=== PATIENT | female | born 1975 | race Caucasian/White ===

== ENCOUNTER 2017-03-05 08:29 | Emergency (ER) | payer OTHER ==
--- NOTE | 2017-03-05 09:27 | ED ORDER SUMMARY ---
..... Patient: OJ SOMERS OrderSheet [facility] VisitID: [id number] [address] [place] [address] 41y, F Registration Date/Time: 03/05/2017 ORDER SHEET Weight: 86.1 kg (stated) Allergies: Zithromax, Tramadol GENERAL ORDERS: MEDICATION ORDERS: Toradol IM 60 mg (NOW) (09:19 03/05/2017 Felisha Nowak) (9:27 Caesar Carreon.NLuciano) IV FLUIDS: ORDER SHEET NOTES: [Electronically signed by Denny Ackerman Dr. (09:41 03/05/2017)] [Electronically signed by Yeni Garcia R.N. (16:40 03/05/2017)] [Electronically locked/signed by Yeni Garcia R.N. (16:40 03/05/2017)]
--- NOTE | 2017-03-05 09:27 | ED CLINICAL REPORT ---
Clinical Report - Physicians/Mid Levels [facility] [address] [place] [address] 03/05/2017 8:30 Patient: OJ SOMERS Time Seen: 08:52; initial patient contact. Arrived- By private vehicle. Historian- patient. HISTORY OF PRESENT ILLNESS Chief Complaint: HEADACHE. Is still present. This started about 1 month ago. It was gradual in onset. Onset during light activity. It is described as "pain". Quality described as unlike previous headaches. Located in the region of the left eye and occipital region. No neck pain. At its maximum, severity described as moderate. When seen in the E.D., severity described as moderate. The patient has had blurred vision and nausea. No preceding symptoms, photophobia, numbness, weakness or vomiting. Similar symptoms previously: None. Recent medical care: The patient was seen recently by a health care provider (Seen by optometry, Treated w/ steroids and eye drops w/out resolution). REVIEW OF SYSTEMS No fever, muscle aches or sinus pressure. All systems otherwise negative, except as recorded above. PAST HISTORY Intervertebral Disc Disease. Back Injury. Back Pain. Tendonitis RFA, Steroid inj.. SURGERIES: Cystocele, prolapsed uterus. Elbow. Foot surgery . Knee Surgery. SOCIAL HISTORY Never smoker. Occasional alcohol use. No drug use. ADDITIONAL NOTES The nursing notes have been reviewed. PHYSICAL EXAM Vital Signs: 03/05/2017 08:44 BP: 137/90. HR: 68. RR: 18. O2 saturation: 100%. Temp: 98.5 F. Have been reviewed. Hypertensive. Heart rate normal. Respiratory rate normal. Temperature normal. Oxygen saturation normal. Appearance: Alert. No acute distress. Eyes: Pupils equal, round and reactive to light and light. Moderate, diffuse redness of the left conjunctiva. No exudate on the left. EOMs intact. No photophobia. ENT: Pharynx normal. Neck: Moderate muscle spasm of the left posterior neck. Moderate soft tissue tenderness in the left upper, mid and lower neck area. No lymphadenopathy. No pain with movement of head/neck. No vertebral tenderness. No vertebral step-off. Skin: No rash. Neuro: Oriented X 3. Alert. PROGRESS AND PROCEDURES Discussed case with health care provider (call returned 09:27 Dr. uMñoz will see pt today, she agrees this may be glaucoma). Disposition: Discharged home in good condition. Condition: good. CLINICAL IMPRESSION Chronic tension-type headache resistant to treatment and poorly controlled. Acute eye pain left eye. INSTRUCTIONS Your Current Medications: STOP TAKING THE FOLLOWING MEDICATIONS: Methocarbamol Oral. CONTINUE TAKING THE FOLLOWING MEDICATIONS: Ibuprofen Oral. Naproxen Oral. Tylenol 8 Hour Oral. Prescription Medications: Baclofen 20 mg: take 1 orally every 8 hours. Dispense thirty (30). No refills. Follow-up: Screening today revealed the patient's blood pressure to be in the hypertensive range. The patient should follow up with a primary care provider for blood pressure management. Follow-up with: Laure Muñoz MD, Ophthalmology, [facility], [address] [place] [address] - [address], [place] [address] Follow up today. Follow-up with: [facility] Medicine, Family [facility], , [address] [place] [address], [address], [place] [address] Follow up in about three days. Call for an appointment. (Electronically signed by Denny Ackerman Dr. 03/05/2017 9:41)
--- NOTE | 2017-03-05 09:27 | ED CLINICAL REPORT ---
Clinical Report - Physicians/Mid Levels [facility] [address] [place] [address] 03/05/2017 8:30 Patient: OJ SOMERS Time Seen: 08:52; initial patient contact. Arrived- By private vehicle. Historian- patient. HISTORY OF PRESENT ILLNESS Chief Complaint: HEADACHE. Is still present. This started about 1 month ago. It was gradual in onset. Onset during light activity. It is described as "pain". Quality described as unlike previous headaches. Located in the region of the left eye and occipital region. No neck pain. At its maximum, severity described as moderate. When seen in the E.D., severity described as moderate. The patient has had blurred vision and nausea. No preceding symptoms, photophobia, numbness, weakness or vomiting. Similar symptoms previously: None. Recent medical care: The patient was seen recently by a health care provider (Seen by optometry, Treated w/ steroids and eye drops w/out resolution). REVIEW OF SYSTEMS No fever, muscle aches or sinus pressure. All systems otherwise negative, except as recorded above. PAST HISTORY Intervertebral Disc Disease. Back Injury. Back Pain. Tendonitis RFA, Steroid inj.. SURGERIES: Cystocele, prolapsed uterus. Elbow. Foot surgery . Knee Surgery. SOCIAL HISTORY Never smoker. Occasional alcohol use. No drug use. ADDITIONAL NOTES The nursing notes have been reviewed. PHYSICAL EXAM Vital Signs: 03/05/2017 08:44 BP: 137/90. HR: 68. RR: 18. O2 saturation: 100%. Temp: 98.5 F. Have been reviewed. Hypertensive. Heart rate normal. Respiratory rate normal. Temperature normal. Oxygen saturation normal. Appearance: Alert. No acute distress. Eyes: Pupils equal, round and reactive to light and light. Moderate, diffuse redness of the left conjunctiva. No exudate on the left. EOMs intact. No photophobia. ENT: Pharynx normal. Neck: Moderate muscle spasm of the left posterior neck. Moderate soft tissue tenderness in the left upper, mid and lower neck area. No lymphadenopathy. No pain with movement of head/neck. No vertebral tenderness. No vertebral step-off. Skin: No rash. Neuro: Oriented X 3. Alert. PROGRESS AND PROCEDURES Discussed case with health care provider (call returned 09:27 Dr. Muñoz will see pt today, she agrees this may be glaucoma). Disposition: Discharged home in good condition. Condition: good. CLINICAL IMPRESSION Chronic tension-type headache resistant to treatment and poorly controlled. Acute eye pain left eye. INSTRUCTIONS Your Current Medications: STOP TAKING THE FOLLOWING MEDICATIONS: Methocarbamol Oral. CONTINUE TAKING THE FOLLOWING MEDICATIONS: Ibuprofen Oral. Naproxen Oral. Tylenol 8 Hour Oral. Prescription Medications: Baclofen 20 mg: take 1 orally every 8 hours. Dispense thirty (30). No refills. Follow-up: Screening today revealed the patient's blood pressure to be in the hypertensive range. The patient should follow up with a primary care provider for blood pressure management. Follow-up with: Laure Muñoz MD, Ophthalmology, [facility], [address] [place] [address] - [address], [place] [address] Follow up today. Follow-up with: [facility] Medicine, Family [facility], , [address] [place] [address], [address], [place] [address] Follow up in about three days. Call for an appointment. (Electronically signed by Denny Ackerman Dr. 03/05/2017 9:41)
--- NOTE | 2017-03-05 09:27 | ED NURSING NOTES ---
Clinical Report - Nurses [facility] [address] [place] [address] 03/05/2017 8:30 [id number] Triage time 08:44 Mar 05 2017. Acuity: LEVEL 3. Chief Complaint: HEADACHE. YANIV COMA SCORE: [place] Coma Scale: 15- eyes open spontaneously (4); best verbal response- oriented x 4 (5); best motor response- obeys commands (6). --08:52 Yeni Garcia R.N. 08:44 03/05/17. BP: 137/90. HR: 68. RR: 18. O2 saturation: 100%. Temp: 98.5 F. Pain level now 7/10. --08:52 Yeni Garcia R.N. Weight: 86.1 kg stated. Height/Length: 67 inches Per Patient. BMI: 29.8. --08:50 Yeni Garcia R.N. Medications Ibuprofen Oral. --08:47 Yeni Garcia R.N. Naproxen Oral. --08:47 Yeni Garcia R.N. Tylenol 8 Hour Oral. --08:47 Yeni Garcia R.N. Methocarbamol Oral. --08:48 Yeni Garcia R.N. Allergies Zithromax. --08:48 Yeni Garcia R.N. Tramadol. --08:48 Yeni Garcia R.N. History Arrived by private vehicle. Historian: patient. Accompanied by family. This started 3 months of headaches red eye for 1 month. ( States has severe headaches and then they will go away but now has this pressure in the mid left side back pain with tingling going down left arm at times.). She has had nausea, weakness and numbness. No vomiting, fever or sinus pain. 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 (naproxen methocarbol). PAST MEDICAL HX: Headaches. No history of diabetes mellitus or hypertension. No history of head injury. Immunizations: status is unknown. Last normal menstrual period- yesterday. SOCIAL HX: Never smoker. Occasional alcohol use. No drug use. SELF HARM ASSESSMENT: A self harm assessment was performed. The patient answered "no" to the question "Have you recently felt down, depressed, or hopeless?" and "Do you have thoughts of harming or killing yourself?". FALL RISK ASSESSMENT: Fall risk assessment completed. No fall risk identified. NUTRITIONAL RISK ASSESSMENT: The nutritional risk assessment revealed no deficiencies. FUNCTIONAL ASSESSMENT: Functional assessment: no impairments noted. LEARNING NEEDS ASSESSMENT: The learning needs assessment revealed no barriers. ABUSE ASSESSMENT: Abuse assessment: (yes) The patient was asked "Do you feel safe in your home?". SKIN INTEGRITY ASSESSMENT: Skin integrity risk assessment completed. No skin integrity risk identified. --08:52 Yeni Garcia R.N. PROBLEMS: Intervertebral Disc Disease. Back Injury. Back Pain. Tendonitis RFA, Steroid inj.. Tetanus Status. Immunizations. --08:48 Yeni Garcia R.N. ADDITIONAL SURGERIES: Cystocele, prolapsed uterus. Elbow. Foot surgery . Knee Surgery. --08:48 Yeni Garcia R.N. Interventions ID and allergy band on patient. --08:52 Yeni Garcia R.N. PHYSICAL ASSESSMENT Ambulatory to room. GENERAL / NEURO / PSYCH: Alert. Oriented X 4. Appears in pain and anxious. Speech within normal limits. HEENT: No facial asymmetry noted. Pupils equal, round and reactive to light. RESPIRATORY: Respirations not labored. Breath sounds within normal limits. CVS: Capillary refill less than 2 seconds. GI / : Abdomen soft and nontender. SKIN: Skin is warm and dry. --08:52 Yeni Garcia R.N. NURSING PROGRESS NOTES The initial plan of care for this patient includes an assessment with efforts to address patient positioning, appropriate ambient lighting and comfortable environmental temperature; impairment of the musculoskeletal system. Oxygen administered. Pulse oximeter and NIBP monitor placed on patient. Patient gowned. Reassurance given. Lights dimmed. Call light placed in reach. Side rails up x 1. Bed placed in lowest position. Brakes of bed on. --08:53 Yeni Garcia R.N. 09:27 03/05/2017 Toradol (Ketorolac Tromethamine) IM 60 mg given. Given in the right gluteus roby. Allergies verified and confirmed 5 rights. --09:27 Yeni Garcia R.N. DISPOSITION / DISCHARGE Departure time: 09:35 Mar 05 2017. Condition at departure: improved. No learning barriers present. Discharge instructions provided and reviewed with the patient. Reviewed warnings. Reviewed medication(s). Treatments reviewed. Reviewed referrals. Follow up contact number. Patient verbalized understanding. Written instructions provided in Guamanian. The patient was discharged home. She left the Emergency Department ambulatory and via private vehicle. Patient driving. --09:37 Yeni Garcia R.N. 08:44 03/05/17. BP: 137/90. HR: 68. RR: 18. O2 saturation: 100%. Temp: 98.5 F. Pain level now 7/10. --09:37 Yeni Garcia R.N. Locked/Released at 03/05/2017 16:40 by Yeni Garcia R.N.
--- NOTE | 2017-03-05 09:27 | ED ORDER SUMMARY ---
..... Patient: OJ SOMERS OrderSheet [facility] VisitID: [id number] [address] [place] [address] 41y, F Registration Date/Time: 03/05/2017 ORDER SHEET Weight: 86.1 kg (stated) Allergies: Zithromax, Tramadol GENERAL ORDERS: MEDICATION ORDERS: Toradol IM 60 mg (NOW) (09:19 03/05/2017 Felisha Nowak) (9:27 Caesar Carreon.NLuciano) IV FLUIDS: ORDER SHEET NOTES: [Electronically signed by Denny Ackerman Dr. (09:41 03/05/2017)] [Electronically signed by Yeni Garcia R.N. (16:40 03/05/2017)] [Electronically locked/signed by Yeni Garcia R.N. (16:40 03/05/2017)]
--- NOTE | 2017-03-05 16:41 | ED DISCHARGE INSTRUCTIONS ---
Patient: OJ SOMERS General Instructions [facility] VisitID: [id number] [address] [place] [address] 41y, F Registration Date/Time: 03/05/2017 Chronic tension-type headache resistant to treatment and poorly controlled. Acute eye pain left eye. INSTRUCTIONS Your Current Medications: STOP TAKING THE FOLLOWING MEDICATIONS: Methocarbamol Oral. CONTINUE TAKING THE FOLLOWING MEDICATIONS: Ibuprofen Oral. Naproxen Oral. Tylenol 8 Hour Oral. Prescription Medications: Baclofen 20 mg: take 1 orally every 8 hours. Dispense thirty (30). No refills. Follow-up: Screening today revealed the patient's blood pressure to be in the hypertensive range. The patient should follow up with a primary care provider for blood pressure management. Follow-up with: Laure Muñoz MD, Ophthalmology, [facility], [address] [place] [address] [address], [place] [address] Follow up today. Follow-up with: [facility] Medicine, Family [facility], , [address] [place] [address], [address], [place] [address] Follow up in about three days. Call for an appointment. ADDITIONAL INFORMATION Tension Headache Muscle Tension Headache (also called "stress headache") is a very common cause of head pain. Under stress, some people tense the muscles of their shoulder, neck and scalp without knowing it. If this lasts long enough, a headache can occur. These headaches can be very painful and last for hours or even days. Home Care: If you were given pain medicine for this headache, do not drive yourself home. Arrange for a ride, instead. When you get home, try to sleep. You should feel much better when you wake up. Heat to the back of your neck may relieve neck spasm. Drink only clear liquids or eat a very light diet to avoid nausea/vomiting until symptoms improve. Preventing Future Headaches Identify the sources of stress in your life. These may not be obvious! Learn new ways to handle your stress, such as regular exercise, biofeedback, self-hypnosis and meditation. For more information about this, consult your doctor or go to a local bookstore and review the many books and tapes on this subject. At the first sign of a tension headache, take time out if possible. Remove yourself from the stressful situation, find a quiet comfortable place to sit or lie down and let yourself relax. Heat and deep massage of the tight areas in the neck and shoulders may help reduce muscle spasm. Medicine, such as ibuprofen (Advil or Motrin) or a prescribed muscle relaxant may be helpful at this point. Follow Up with your doctor if the headache is not better within the next 24 hours. If you have frequent headaches you should discuss a treatment plan with your primary care doctor. Ask if you can have medicine to take at home the next time you get a bad headache. This may avoid the need for a visit to the emergency department in the future. Poorly controlled chronic headaches may require a referral to a neurologist (headache specialist). Get Prompt Medical Attention if any of the following occur: Worsening of your head pain or no improvement within 24 hours Repeated vomiting (unable to keep liquids down) Fever of 100.4F (38C) or higher, or as directed by your healthcare provider Stiff neck Extreme drowsiness, confusion or fainting Dizziness, vertigo (dizziness with spinning sensation) Weakness of an arm or leg or one side of the face Difficulty with speech or vision You have been given the following additional information: Headache, Tension (Electronically signed by Denny Ackerman Dr. 03/05/2017 9:41)
--- NOTE | 2017-03-05 16:41 | ED MAR SUMMARY ---
..... Medication Administration Record [facility] [address] [place] [address] Patient: OJ SOMERS Visit ID: [id number] 41y, F Weight: 86.1 kg Height/Length: 67 in BMI: 29.8 ALLERGIES: Tramadol, Zithromax Given 09:27 03/05/2017 Yeni Garcia RBrien Medication Administered: TORADOL [IM] (KETOROLAC TROMETHAMINE), Dose: 60 mg IM. Medication Ordered: Toradol IM 60 mg (NOW).
--- NOTE | 2017-03-05 16:41 | ED MED RECONCILIATION SUMMARY ---
Patient: ROCIO SOMERSA Andreina Medication Reconciliation Report [facility] VisitID: [id number] [address] [place] [address] 41y, F Registration Date/Time: 03/05/2017 Weight: 86.1 kg Height/Length: 67 in. BMI: 29.8 ALLERGIES: Tramadol, Zithromax The patient's Home Medications are listed below: STOP TAKING THE FOLLOWING MEDICATIONS: Methocarbamol Oral CONTINUE TAKING THE FOLLOWING MEDICATIONS: Ibuprofen Oral Naproxen Oral Tylenol 8 Hour Oral The source(s) of the original Home Medication information: Not obtained. The following Medications were given to the patient in the Emergency Department: Toradol [IM] IM 60 mg, administered: 03/05/2017 9:27:00 AM The following Medications were prescribed to the patient: Baclofen 20 mg: take 1 orally every 8 hours. Dispense thirty (30). No refills. -- Denny Ackerman Dr.
--- NOTE | 2017-03-05 16:41 | ED DISCHARGE INSTRUCTIONS ---
Patient: OJ SOMERS General Instructions [facility] VisitID: [id number] [address] [place] [address] 41y, F Registration Date/Time: 03/05/2017 Chronic tension-type headache resistant to treatment and poorly controlled. Acute eye pain left eye. INSTRUCTIONS Your Current Medications: STOP TAKING THE FOLLOWING MEDICATIONS: Methocarbamol Oral. CONTINUE TAKING THE FOLLOWING MEDICATIONS: Ibuprofen Oral. Naproxen Oral. Tylenol 8 Hour Oral. Prescription Medications: Baclofen 20 mg: take 1 orally every 8 hours. Dispense thirty (30). No refills. Follow-up: Screening today revealed the patient's blood pressure to be in the hypertensive range. The patient should follow up with a primary care provider for blood pressure management. Follow-up with: Laure Muñoz MD, Ophthalmology, [facility], [address] [place] [address], [place] [address] Follow up today. Follow-up with: [facility] Medicine, Family [facility], , [address] [place] [address], [address], [place] [address] Follow up in about three days. Call for an appointment. ADDITIONAL INFORMATION Tension Headache Muscle Tension Headache (also called "stress headache") is a very common cause of head pain. Under stress, some people tense the muscles of their shoulder, neck and scalp without knowing it. If this lasts long enough, a headache can occur. These headaches can be very painful and last for hours or even days. Home Care: If you were given pain medicine for this headache, do not drive yourself home. Arrange for a ride, instead. When you get home, try to sleep. You should feel much better when you wake up. Heat to the back of your neck may relieve neck spasm. Drink only clear liquids or eat a very light diet to avoid nausea/vomiting until symptoms improve. Preventing Future Headaches Identify the sources of stress in your life. These may not be obvious! Learn new ways to handle your stress, such as regular exercise, biofeedback, self-hypnosis and meditation. For more information about this, consult your doctor or go to a local bookstore and review the many books and tapes on this subject. At the first sign of a tension headache, take time out if possible. Remove yourself from the stressful situation, find a quiet comfortable place to sit or lie down and let yourself relax. Heat and deep massage of the tight areas in the neck and shoulders may help reduce muscle spasm. Medicine, such as ibuprofen (Advil or Motrin) or a prescribed muscle relaxant may be helpful at this point. Follow Up with your doctor if the headache is not better within the next 24 hours. If you have frequent headaches you should discuss a treatment plan with your primary care doctor. Ask if you can have medicine to take at home the next time you get a bad headache. This may avoid the need for a visit to the emergency department in the future. Poorly controlled chronic headaches may require a referral to a neurologist (headache specialist). Get Prompt Medical Attention if any of the following occur: Worsening of your head pain or no improvement within 24 hours Repeated vomiting (unable to keep liquids down) Fever of 100.4F (38C) or higher, or as directed by your healthcare provider Stiff neck Extreme drowsiness, confusion or fainting Dizziness, vertigo (dizziness with spinning sensation) Weakness of an arm or leg or one side of the face Difficulty with speech or vision You have been given the following additional information: Headache, Tension (Electronically signed by Denny Ackerman Dr. 03/05/2017 9:41)
--- NOTE | 2017-03-05 16:41 | ED MED RECONCILIATION SUMMARY ---
Patient: ROCIO SOMERSA Andreina Medication Reconciliation Report [facility] VisitID: [id number] [address] [place] [address] 41y, F Registration Date/Time: 03/05/2017 Weight: 86.1 kg Height/Length: 67 in. BMI: 29.8 ALLERGIES: Tramadol, Zithromax The patient's Home Medications are listed below: STOP TAKING THE FOLLOWING MEDICATIONS: Methocarbamol Oral CONTINUE TAKING THE FOLLOWING MEDICATIONS: Ibuprofen Oral Naproxen Oral Tylenol 8 Hour Oral The source(s) of the original Home Medication information: Not obtained. The following Medications were given to the patient in the Emergency Department: Toradol [IM] IM 60 mg, administered: 03/05/2017 9:27:00 AM The following Medications were prescribed to the patient: Baclofen 20 mg: take 1 orally every 8 hours. Dispense thirty (30). No refills. -- Denny Ackerman Dr.
--- NOTE | 2017-03-05 16:41 | ED MAR SUMMARY ---
..... Medication Administration Record [facility] [address] [place] [address] Patient: OJ SOMERS Visit ID: [id number] 41y, F Weight: 86.1 kg Height/Length: 67 in BMI: 29.8 ALLERGIES: Tramadol, Zithromax Given 09:27 03/05/2017 Yeni Garcia RBrien Medication Administered: TORADOL [IM] (KETOROLAC TROMETHAMINE), Dose: 60 mg IM. Medication Ordered: Toradol IM 60 mg (NOW).
== END 2017-03-05 09:35 | disposition home or self-care (01) ==
LOC: ED SRH 08:29
DX: G44.229 Chronic tension-type headache, not intractable (principal); H57.12 Ocular pain, left eye; Z79.1 Long term (current) use of non-steroidal anti-inflammatories (NSAID); Z79.899 Other long term (current) drug therapy; Z88.1 Allergy status to other antibiotic agents; Z88.5 Allergy status to narcotic agent